=== PATIENT | male | born 1990 | race Caucasian/White ===

== ENCOUNTER 2024-01-11 09:34 | Emergency (ER) | payer SELFPAY ==
[~2024-01-11] VITALS: Ht 175.3 cm; Wt 78.5 kg
[2024-01-11 09:51] VITALS: O2SAT 99
[2024-01-11 10:47] VITALS: BP 132/70; PULSE 86; RESP 16; TEMP 36.78072; O2SAT 99
== END 2024-01-11 10:50 | disposition home or self-care (01) ==
LOC: ER 09:55
DX: F41.9 Anxiety disorder, unspecified (principal); Z56.6 Other physical and mental strain related to work
CPT/HCPCS: 99281